=== PATIENT | female | born 1995 | race Caucasian/White ===

== ENCOUNTER → 2024-05-11 | Outpatient (CLI) | payer OTHER ==
[~2024-05-11] MED LIST: ACET500 PO; ACYC400 PO; DOCU100 PO; IBUP800 PO; PRENATAL TABLE1 EAC2 PO; VALTREX500 M2 PO
== END | disposition home or self-care (01) ==
LOC: LAB 13:33 → LAB SHORT 13:33
DX: R82.90 Unspecified abnormal findings in urine (principal)
CPT/HCPCS: 87086

== ENCOUNTER 2025-01-07 13:09 | Emergency (ER) | payer OTHER ==
[~2025-01-07] VITALS: Ht 165.1 cm; Wt 72.6 kg
[2025-01-07 13:51] VITALS: BP 129/88
[2025-01-07] MEDS ORDERED: OxyCODONE 5 mg/Acetamin 325 mg TABLET PO ONE (14:20)
[2025-01-07] MEDS ORDERED: Percocet 5-3251 EACH PO (16:23)
== END 2025-01-07 16:47 | disposition home or self-care (01) ==
LOC: ER 13:09
DX: M25.561 Pain in right knee (principal); K21.9 Gastro-esophageal reflux disease without esophagitis; Z79.899 Other long term (current) drug therapy; Z79.1 Long term (current) use of non-steroidal anti-inflammatories (NSAID)
CPT/HCPCS: 73562-RT; 73700; 99284-25; A9270

== ENCOUNTER → 2025-08-22 | Outpatient (CLI) | payer OTHER ==
[~2025-08-22] MED LIST changes: +ACYC800; +AMPDEX10CR PO; +Percocet 5-3251 EACH PO
[2025-08-22 19:17] LABS: Bacterial Vaginosis PCR Negative (NEGATIVE); Candida Group, PCR NOT DETECTED (NOT DETECT); Candida glabrata-krusei, PCR NOT DETECTED (NOT DETECT)
== END ==
LOC: LAB SHORT 14:12 → LAB 14:12
PROVIDERS: Obstetrics & Gynecology
DX: N76.0 Acute vaginitis (principal)
CPT/HCPCS: 81515